=== PATIENT | female | born 1960 | race Caucasian/White ===

== ENCOUNTER 2016-12-08 07:38 | Day surgery (SDC) | payer BC ==
[2016-12-08] MEDS ORDERED: Dextrose 5%-Lactated Ringers 1,000 ML IV SCH ×2 (08:00)
[2016-12-08] MEDS ORDERED: fentaNYL 100 MCG/2 ML SDV ONE (09:22)
[2016-12-08] MEDS ORDERED: Midazolam 1 MG/ML 2 ML SDV ONE (09:22)
[2016-12-08] MEDS ORDERED: Propofol 200 MG/20 ML SDV ONE (09:23)
[2016-12-08 10:30] VITALS: BP 149/96
--- NOTE | 2016-12-09 12:42 | OR ---
DATE OF PROCEDURE: 12/08/2016 PREOPERATIVE DIAGNOSIS: Indication for screening colonoscopy. POSTOPERATIVE DIAGNOSIS: Limited uncomplicated left-sided colonic diverticulosis. OPERATIVE PROCEDURE: Flexible colonoscopy. ANESTHESIA: IV sedation. INDICATIONS FOR PROCEDURE: The patient presents for screening colonoscopy. Potential risks including bleeding and perforation were discussed, and the patient wishes to proceed. PROCEDURE IN DETAIL: The patient was taken to the operating room, placed in a left lateral decubitus position. IV sedation was administered, after which the initial digital rectal exam was performed and was unremarkable. Colonoscope was then passed through the rectum with retroflexion revealing uncomplicated hemorrhoidal columns. The scope was eventually passed to the level of the cecum. The prep was quite good with only a very limited amount of liquid stool present. The patient had very limited few diverticula in the left colon, which were otherwise uncomplicated. Apart from that, there were no additional pathologies, specifically no areas of colitis, no polyps, or other signs of neoplasia. The scope was then withdrawn, the above findings reconfirmed, and the procedure concluded. There were no evident complications. Recommendations would be to repeat the colonoscopy in 10 years given the lack of family history and a normal exam today from a neoplastic standpoint. David Kathleen MD /[id number]
== END 2016-12-08 10:55 | disposition home or self-care (01) ==
LOC: JP.SDS 07:38
PROVIDERS: ATTEND Surgery
DX: Z12.11 Encounter for screening for malignant neoplasm of colon (principal); K57.30 Diverticulosis of large intestine without perforation or abscess without bleeding
CPT/HCPCS: 45378; J2250; J2704; J3010; J7042